=== PATIENT | female | born 1995 | race Caucasian/White ===

== ENCOUNTER 2022-10-27 10:06 | Emergency (ER) | payer OTHER, SELFPAY ==
[2022-10-27] VITALS (7 sets, daily range): BP systolic 118–147; BP diastolic 73–89; PULSE 57–89; RESP 11–17; TEMP 36.6–36.8; O2SAT 97–100; BMI 24.0
--- NOTE | 2022-10-27 10:06 | ECG_ITS ---
APPROVED REPORT Exam: Resting ECG HR:96 bpm ECG Measurements Heart Rate 96 AXES TN 159 P 65 QRSd 106 QRS 18 QT 337 T -4 QTc 390 Conclusion SINUS RHYTHM WITH MARKED SINUS ARRHYTHMIA LEFT ATRIAL ENLARGEMENT [-0.15mV P-WAVE IN V1/V2] INCOMPLETE RIGHT BUNDLE BRANCH BLOCK [90+ ms QRS DURATION, TERMINAL R IN V1/V2, 40+ ms S IN I/aVL/V4/V5/V6] ABNORMAL ECG UNCONFIRMED REPORT Electronically signed by : Musa Schultz MD 10/27/2022 19:45:53
--- NOTE | 2022-10-27 10:11 | HMH.EDGENADL ---
Discharge Plan Disposition Patient Disposition: Home, Self-Care Activity Restrictions/Add. Instructions Additional Instructions/Restrictions: Follow-up with primary care doctor as needed return to the emergency department as needed as well. I would recommend that you change away from an estrogen containing contraceptive to progesterone only or get off of them altogether this something you talk to your primary care doctor and [employer] doctor as your work-up today was most concerning for a pulmonary embolism but the work-up was negative. It is likely that you have pleurisy which can be idiopathic in nature meaning we do not know the exact cause please take ibuprofen 800 mg 3 times a day as needed with food return with any worsening symptoms. Clinical Impressions Clinical Impression: Pleuritic chest pain Discharge ED Provider: Shannen Sauceda General Adult HPI General Chief complaint: Chest Pain Stated complaint: chest pain Time Seen by Provider: 10/27/22 10:12 History of Present Illness HPI narrative: 27-year-old female presenting with anterior pleuritic chest pain. Began this morning is nonpositional in nature does not improve with sitting forward. She has not had any preceding viral illnesses no fevers chills cough cold like illness. She has no history of any lower extremity swelling no history of DVT or PTE or family history of coagulopathy. She is on oral contraceptive pills. She denies any exertional component to this at the moment. States that the only thing that makes it worse is a deep breath. She is extremely fit and works out regularly but has not done any excessive lifting out of the ordinary for what she normally does from an activity standpoint. No family history of sudden cardiac . Related Data Allergies Allergy/AdvReac Type Severity Reaction Status Date / Time amoxicillin Allergy Verified 05/19/22 10:25 [facility] Disclaimer: The information contained in this section may have been updated after the patient was seen, as this information can be updated by other users. Social History Smoking Status: Never smoker alcohol intake: never current occupational status: other Travel in the last 8 weeks: None ROS Obtained: Yes All systems reviewed & no additional complaints except as documented Physical Exam General General appearance: alert Chest Chest inspection: Present normal inspection and symmetric chest wall rise Respiratory Respiratory exam: Present normal lung sounds bilaterally; Absent respiratory distress, wheezes, stridor or accessory muscle use Cardiovascular Cardiovascular exam: Present normal rhythm and tachycardia Abdominal Exam Abdominal exam: Present soft; Absent distention, tenderness, guarding or rebound Neurological Exam Neurological exam: Present alert Medical Decision Making Bret Inquiry Pt receiving controlled substance: No Vital Signs: 10/27/22 10:09 10/27/22 10:28 10/27/22 10:30 Temperature 97.9 F Temperature Source Oral Pulse Rate 83 83 Pulse Rate [Left Radial] 89 Respiratory Rate 17 13 Blood Pressure 119/77 Blood Pressure [Right Arm] 139/85 Blood Pressure Mean 91 Blood Pressure Mean [Right Arm] 103 Blood Pressure Source [Right Arm] Automatic Cuff Blood Pressure Position [Right Arm] Sitting 02 Sat by Pulse Oximetry 97 99 Oxygen Delivery Method Room Air 10/27/22 10:30 10/27/22 10:45 10/27/22 11:30 Temperature Temperature Source Pulse Rate 77 78 67 Pulse Rate [Left Radial] Respiratory Rate 14 15 Blood Pressure 123/73 Blood Pressure [Right Arm] Blood Pressure Mean 93 Blood Pressure Mean [Right Arm] Blood Pressure Source [Right Arm] Blood Pressure Position [Right Arm] 02 Sat by Pulse Oximetry 100 100 100 Oxygen Delivery Method Room Air 10/27/22 12:00 Temperature Temperature Source Pulse Rate 66 Pulse Rate [Left Radial] Respiratory Rate Blood Pressure 118/75 Blood Pressure [Right Ar
--- NOTE | 2022-10-27 10:18 | PC.NURSE ---
Pt asked to defer pain medication IV dose at this time
[2022-10-27 10:22] LABS: Eosinophils # 0.1 K/mm3 (0.0-0.4); Hematocrit 39.9 % (37.0-47.0); Hemoglobin 12.7 g/dL (12.2-16.2); Lymphocytes # 1.6 K/mm3 (0.7-4.5); Lymphocytes % 36.9 % (10-50); Mean Corpuscular HGB Conc 31.7 g/dL (31.8-35.4); Mean Corpuscular Hemoglobin 26.6 pg (27.0-31.2); Mean Corpuscular Volume 83.8 fl (81-99); Mean Platelet Volume 7.2 fl (7.4-10.4); Monocytes # 0.3 K/mm3 (0.1-1.0); Monocytes % 7.2 % (1.7-9.3); Neutrophils # 2.3 K/mm3 (1.8-7.8); Neutrophils % 52.9 % (37.0-80.0); Platelet Count 363 K/mm3 (142-424); Red Blood Count 4.76 M/mm3 (4.20-5.40); White Blood Count 4.3 K/mm3 (4.8-10.8)
[2022-10-27 10:27] LABS: Alanine Aminotransferase 19 U/L (12-78); Albumin Level 4.4 g/dl (3.5-5.0); Albumin/Globulin Ratio 1.3 (1.1-1.8); Alkaline Phosphatase 56 U/L (38-126); Anion Gap 10.8 mEq/L (5-15); Aspartate Amino Transferase 30 U/L (14-36); Bilirubin,Total 0.3 mg/dl (0.2-1.3); Blood Urea Nitrogen 13 mg/dl (7-17); Calcium 8.6 mg/dl (8.4-10.2); Carbon Dioxide 25 mmol/L (22.0-30.0); Chloride 105 mmol/L (98-107); Creatinine Clearance Estimated 122 mL/min (50-200); Estimated Glomerular Filt Rate 101 ml/min (>60); GFR (African American) 122 ML/MIN (>60); Globulin 3.3 g/dL (1.3-3.2); Glucose 95 mg/dl (74-100); Lipase 131 U/L (23-300); Potassium 3.8 mmoL/L (3.5-5.1); Sodium 137 mmol/L (136-145); Total Protein,Serum 7.7 g/dl (6.3-8.2)
[2022-10-27 10:33] LABS: D-Dimer 0.69 ug/mL (0.0-0.5)
[2022-10-27 10:40] LABS: Troponin I < 0.01 ng/ml (0.00-0.034)
--- NOTE | 2022-10-27 10:43 | CT_ITS ---
FINAL REPORT TECHNIQUE: The patient was injected with IV contrast. Axial images were obtained through the chest in a PE protocol. 3-D reconstruction images were also performed. Individualized dose reduction techniques using automated exposure control or adjustment of the MA and/or KV according to patient's size were employed. CLINICAL HISTORY: pleuritic cp, on OCPs, elevated dimer FINDINGS: There is a moderate pectus deformity. The distance between the posterior sternum and thoracic vertebrae is 4.9 cm. Mediastinal vasculature is adequately opacified. No pulmonary artery filling defects are identified to suggest PE. There is no aortic dissection. There is no axillary adenopathy. There is no hilar or mediastinal adenopathy. The heart size is normal. There is no pericardial or pleural effusion. Limited images of the upper abdomen are unremarkable. No suspicious infiltrate or nodule is identified. IMPRESSION: No pulmonary embolus or dissection. Reviewed, Interpreted and Dictated by Yomi Rod MD Transcribed by Melinda Dixon Authenticated and [facility]
--- NOTE | 2022-10-27 10:53 | PC.NURSE ---
adama rounded on pt,call light 2 bs
[2022-10-27 10:56] LABS: HCG Qualitative, Serum Negative (Negative)
--- NOTE | 2022-10-27 10:59 | PC.NURSE ---
pt to CT via wheelchair at this time
--- NOTE | 2022-10-27 11:00 | PC.NURSE ---
pt to radiology
--- NOTE | 2022-10-27 11:11 | PC.NURSE ---
pt arrived to room
[2022-10-27 12:30] LABS: Urine Pregnancy, HCG Qual. Negative (Negative)
== END 2022-10-27 13:05 | disposition home or self-care (01) ==
PROVIDERS: Emergency Provider Student in an Organized Health Care Education/Training Program
DX: R07.81 Pleurodynia (principal); I45.19 Other right bundle-branch block; R00.0 Tachycardia, unspecified
CPT/HCPCS: 71275; 80053; 81025; 83690; 84484; 84703; 85025; 85378; 93005; 96360; 96374; 99285; Q9967

== ENCOUNTER → 2022-11-07 16:37 | Outpatient (CLI) | payer OTHER, SELFPAY ==
[2022-11-07 16:46] LABS: Basophils % 0.5 % (0.1-2.0); Eosinophils % 0.8 % (0.1-12.0); Hematocrit 39.2 % (37.0-47.0); Hemoglobin 12.8 g/dL (12.2-16.2); Lymphocytes # 1.4 K/mm3 (0.7-4.5); Lymphocytes % 30.4 % (10-50); Mean Corpuscular HGB Conc 32.7 g/dL (31.8-35.4); Mean Corpuscular Hemoglobin 27.4 pg (27.0-31.2); Mean Corpuscular Volume 83.8 fl (81-99); Mean Platelet Volume 7.3 fl (7.4-10.4); Monocytes # 0.4 K/mm3 (0.1-1.0); Monocytes % 8.4 % (1.7-9.3); Neutrophils # 2.8 K/mm3 (1.8-7.8); Neutrophils % 59.8 % (37.0-80.0); Platelet Count 305 K/mm3 (142-424); Red Blood Count 4.67 M/mm3 (4.20-5.40); Red Cell Distribution Width 13.9 % (11.5-17.5); White Blood Count 4.6 K/mm3 (4.8-10.8)
[2022-11-07 17:30] LABS: Alanine Aminotransferase 17 U/L (12-78); Albumin Level 4.2 g/dl (3.5-5.0); Albumin/Globulin Ratio 1.4 (1.1-1.8); Alkaline Phosphatase 73 U/L (38-126); Aspartate Amino Transferase 28 U/L (14-36); Bilirubin,Total 0.3 mg/dl (0.2-1.3); Blood Urea Nitrogen 13 mg/dl (7-17); Calcium 8.8 mg/dl (8.4-10.2); Carbon Dioxide 27 mmol/L (22.0-30.0); Chloride 103 mmol/L (98-107); Chol/HDL Ratio 1.9 (1-3.5); Cholesterol 143 mg/dl (140-200); Estimated Glomerular Filt Rate 121 ml/min (>60); GFR (African American) 146 ML/MIN (>60); Globulin 2.9 g/dL (1.3-3.2); Glucose 77 mg/dl (74-100); HDL Cholesterol 76 mg/dl (40-60); Sodium 132 mmol/L (136-145); Total Protein,Serum 7.1 g/dl (6.3-8.2); Triglycerides 66 mg/dl (30-150); VLDL Cholesterol 13 mg/dL (0-40)
[2022-11-07 17:41] LABS: Direct LDL Cholesterol 57.07 mg/dL (100-129)
[2022-11-07 17:45] LABS: Free T4 (Free Thyroxine) 1.08 ng/dl (0.78-2.19)
[2022-11-07 18:00] LABS: Thyroid Stimulating Hormone 2.08 uIU/mL (0.465-4.68)
[2022-11-07 18:19] LABS: Vitamin B12 316 pg/mL (239-931)
[2022-11-16 19:25] LABS: 1,25 Dihydroxy Vitamin D 62 pg/mL (.); 1,25-Dihydroxy, Vitamin D-2 <10 pg/mL (.); 1,25-Dihydroxy, Vitamin D-3 60 pg/mL (.)
== END ==
PROVIDERS: PCP Student in an Organized Health Care Education/Training Program; Visit Provider Student in an Organized Health Care Education/Training Program
DX: R07.81 Pleurodynia (principal); R68.89 Other general symptoms and signs; Z79.899 Other long term (current) drug therapy
CPT/HCPCS: 80053; 80061; 82607; 82652; 84439; 84443; 85025

== ENCOUNTER 2023-08-19 12:11 | Outpatient (CLI) | payer OTHER, SELFPAY ==
[2023-08-19 13:18] LABS: HCG,Quantitative 3696 mIU/ml (0-5.42)
== END 2023-08-19 23:59 ==
LOC: LAB 12:12
PROVIDERS: PCP Student in an Organized Health Care Education/Training Program; Visit Provider Obstetrics & Gynecology
DX: Z32.00 Encounter for pregnancy test, result unknown (principal)
CPT/HCPCS: 36415; 84144; 84702

== ENCOUNTER 2023-09-09 16:44 | Outpatient (CLI) | payer OTHER, SELFPAY ==
[2023-09-11 05:08] LABS: Neisseria gonorrhoeae, NAA Negative (Negative)
== END 2023-09-09 23:59 ==
LOC: LAB.DROPOF 16:45
PROVIDERS: PCP Obstetrics & Gynecology; Visit Provider Obstetrics & Gynecology
DX: O26.891 Other specified pregnancy related conditions, first trimester (principal); Z3A.08 8 weeks gestation of pregnancy
CPT/HCPCS: 87491; 87591

== ENCOUNTER 2023-09-10 09:32 | Outpatient (CLI) | payer SELFPAY | END 2023-09-10 23:59 | PROVIDERS: PCP Obstetrics & Gynecology; Visit Provider Obstetrics & Gynecology | DX: O26.891 Other specified pregnancy related conditions, first trimester (principal); Z3A.08 8 weeks gestation of pregnancy | CPT/HCPCS: 87086 ==

== ENCOUNTER 2023-09-16 15:30 | Outpatient (CLI) | payer OTHER, SELFPAY ==
[2023-09-16 16:04] LABS: Basophils % 0.3 % (0.1-2.0); Eosinophils # 0.1 K/mm3 (0.0-0.4); Eosinophils % 1.7 % (0.1-12.0); Hematocrit 37.6 % (37.0-47.0); Hemoglobin 12.3 g/dL (12.2-16.2); Lymphocytes % 27.3 % (10-50); Mean Corpuscular HGB Conc 32.9 g/dL (31.8-35.4); Mean Corpuscular Volume 88.4 fl (81-99); Mean Platelet Volume 7.3 fl (7.4-10.4); Monocytes # 0.4 K/mm3 (0.1-1.0); Monocytes % 6.1 % (1.7-9.3); Neutrophils # 4.6 K/mm3 (1.8-7.8); Neutrophils % 64.6 % (37.0-80.0); Platelet Count 298 K/mm3 (142-424); Red Blood Count 4.25 M/mm3 (4.20-5.40); Red Cell Distribution Width 13.8 % (11.5-17.5); White Blood Count 7.2 K/mm3 (4.8-10.8)
[2023-09-17 11:36] LABS: Rapid Plasma Reagin Ab Titer Non Reactive titer (NonRea<1:1)
[2023-09-20 09:59] LABS: HIV Screen 4th Generation wRfx Non Reactive; Hepatitis B Surface Antigen Negative
[2023-09-20 10:00] LABS: Hepatitis C Antibody Non Reactive; Rubella Antibodies, IgG 1.04
== END 2023-09-16 23:59 ==
LOC: LAB 15:31
PROVIDERS: PCP Student in an Organized Health Care Education/Training Program; Visit Provider Obstetrics & Gynecology
DX: O26.891 Other specified pregnancy related conditions, first trimester (principal); Z3A.09 9 weeks gestation of pregnancy
CPT/HCPCS: 36415; 85025; 86593; 86703; 86762; 86850; 87340; 87380; G0432

== ENCOUNTER 2023-09-22 11:58 | Emergency (ER) | payer OTHER, SELFPAY ==
[2023-09-22 12:10] VITALS: BP 129/86; PULSE 119; RESP 21; TEMP 37.3; O2SAT 100; BMI 27.1
--- NOTE | 2023-09-22 12:20 | ED_ITS ---
Discharge Plan Disposition Patient Disposition: Home, Self-Care Condition: Good Prescriptions Prescriptions: No Action Classic 28 mg iron- 800 mcg tablet 1 tab PO DAILY Referrals Follow up/Referrals: Laura Farrar PA [Primary Care Provider] - See instructions Activity Restrictions/Add. Instructions Additional Instructions/Restrictions: *Monitor Temp, Over the counter Motrin or Tylenol as directed/as needed Tylenol every 4 hours and Motrin every 6 hours (as long as your family doctor has told you that you can take it) for fever or pain. and straight to ER if unable to lower temp less than 101.0 after medication given *Warm salt water gargles may help to soothe the throat *Throat Lozenges? *Warm fluids like tea with honey may help to soothe the throat? *Sleep elevated *Humidifier/Vaporizer Follow up IMMEDIATELY for new or worsening symptoms or no Noticeable improvement over the next 48-72 hours. 911 for difficulty breathing or swallowin g You were tested for today for Upper Respiratory Panel with COVID19 your test result should be back in the next 24hours, you may check your results on the [facility] My Health Portal if your COVID or Influenza is positive you must Quarantine for 5 days Clinical Impressions Clinical Impression: Viral syndrome Instructions Patient Instructions: DI for Viral Syndrome Discharge ED Provider: Tiffany Hodges [facility] [place] General Stated complaint: Fever, bodyaches Mode of Arrival: Ambulatory Source of Information: Patient Limitations: No Limitations Time Seen by Provider: 09/22/23 12:20 Description of Symptoms (Recalled from Triage Doc. 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, chills and felt like she had a fever States that after getting out she continued to have the same symptoms so she came in get checked Related Data Home Medications Medication Instructions Recorded Confirmed vits no.126-ferrous fum 1 tab PO DAILY 09/09/23 09/22/23 28 mg iron-folic acid 800 mcg tablet (Classic ) Allergies Allergy/AdvReac Type Severity Reaction Status Date / Time amoxicillin Allergy Verified 09/09/23 15:42 Worker's Comp Is this a Worker's Comp case?: No [facility] Disclaimer: The information contained in this section may have been updated after the patient was seen, as this information can be updated by other users. 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 Surgical History History of placement of ear tubes Family History Other Anemia Hyperlipidemia Hypertension Social History Smoking Status: Never smoker alcohol intake: never current occupational status: employed Travel in the last 8 weeks: None household members: significant other housing: house lives independently: No marital status: single service: No alf: No current occupational exposures/hazards: No ROS Obtained: Yes All systems reviewed & no additional complaints except as documented and Yes Systems reviewed as appropriate & no additional complaints except as documented Constitutional Constitutional: Reports body ache, Reports chills and Reports fever(s) ENT Ears, Nose, Mouth, and Throat: Reports system reviewed and no additional complaints, except as documented and Reports as per HPI Cardiovascular Cardiovascular: Reports system reviewed and no additional complaints, except as documented and Reports as per HPI Respiratory Respiratory: Reports system reviewed and no additional complaints, except as documented and Reports as per HPI Gastrointestinal Gastrointestingal: Reports system reviewed and no additional complaints, except as documented and as per HPI; Denies abdominal pain, nausea or vomiting Physical Exam General General appearance: alert and in no apparent distress ENT ENT exam: Present mucous membranes moist Respiratory Respiratory exam: Present normal lung sounds bilaterally; Absent respiratory distress or wheezes Cardiovascular Cardiovascular exam: Present regular rate, normal rhythm and tachycardia Neurological Exam Neurological exam: Present alert, oriented X3 and normal gait Medical Decision Making Bret Inquiry Pt receiving controlled substance: No Bret was queried for this patient: No Vital Signs: 09/22/23 12:10 Temperature 99.2 F Temperature Source Oral Pulse Rate [Left Brachial] 119 H Respiratory Rate 21 Blood Pressure [Left Arm] 129/86 Blood Pressure Mean [Left Arm] 100 Blood Pressure Source [Left Arm] Automatic Cuff Blood Pressure Position [Left Arm] Sitting 02 Sat by Pulse Oximetry 100 Oxygen Delivery Method Room Air Lab Data Lab results reviewed: Yes I reviewed the patient's lab results.
[2023-09-22 12:32] VITALS: BP 129/86; PULSE 119; RESP 21; TEMP 37.3; O2SAT 100
[2023-09-22 12:39] LABS: UTC Influenza A Antigen Negative (Negative); UTC Influenza B Antigen Negative (Negative)
[2023-09-22 12:50] LABS: Adenovirus,PCR Not Detected (NotDetected); Coronavirus 229E Not Detected (NotDetected); Coronavirus NL63 Not Detected (NotDetected); Coronavirus OC43 Not Detected (NotDetected); Coronovirus HKU1,PCR Not Detected (NotDetected); Human Metapneumovirus Not Detected (NotDetected); Influenza A, PCR Not Detected (NotDetected); Influenza AH1, 2009 Not Detected (NotDetected); Influenza AH1, PCR Not Detected (NotDetected); Influenza AH3,PCR Not Detected (NotDetected); Influenza B, PCR Not Detected (NotDetected); Parainfluenza 1, PCR Not Detected (NotDetected); Parainfluenza 2, PCR Not Detected (NotDetected); Parainfluenza 3, PCR Not Detected (NotDetected); Parainfluenza 4, PCR Not Detected (NotDetected); Respiratory Syncytial Virus Not Detected (NotDetected); Rhinovirus/Enterovirus Not Detected (NotDetected)
[2023-09-22 15:12] LABS: Coronavirus 19, PCR Detected (NotDetected)
== END 2023-09-22 12:42 | disposition home or self-care (01) ==
PROVIDERS: Emergency Provider Nurse Practitioner; PCP Student in an Organized Health Care Education/Training Program
DX: O98.519 Other viral diseases complicating pregnancy, unspecified trimester (principal); U07.1 COVID-19; R50.9 Fever, unspecified; Z3A.00 Weeks of gestation of pregnancy not specified; M79.18 Myalgia, other site
CPT/HCPCS: 87632; 87635; 87804; 99204; 99212; G0463

== ENCOUNTER 2023-12-02 12:59 | Outpatient (CLI) | payer OTHER, SELFPAY ==
--- NOTE | 2023-12-02 13:00 | US_ITS ---
PROCEDURE: US OB /MATERNAL DETAIL CLINICAL INDICATION: 20 week anatomy scan COMPARISON: No exams were available for comparison FINDINGS: Transabdominal sonographic images of the pelvis were obtained. From her established due date she is 20 weeks 2 days. Single viable intrauterine gestation. Breech position. Placenta: Anteriorplacenta grade 1. Low lying and 1.4 cm from the internal cervical os. There is an average amount of fluid. The cervix appears satisfactory. Closed and measuring 3.8 cm in length. Complete survey performed and was unremarkable on the submitted images as in PACS. No discrete anomalies identified on survey imaging by technologist. Active fetus. Three-vessel cord with satisfactory umbilical cord insertion. 4- chamber heart noted. Situs, aortic arch, LVOT, RVOT, three-vessel view appear normal. Survey of brain & ventricles Unremarkable. Cerebellum, thalamus, choroid plexus, cisterna magna appear normal. Face and neck survey unremarkable. Profile, nasion, lips and nose appeared normal. Diaphragm and chest views unremarkable. Abdomen: Both kidneys noted. There is mild right renal pelvis dilation of 4.2 mm. Stomach and bladder noted and satisfactory. Spine: Survey of the spine satisfactory with no anomalies identified nor imaged. Cervical, thoracic, lower spine appear normal. Both arms and legs noted. Amniotic Fluid: Adequate. Measurements: Average ultrasound age 20weeks 1day. Estimated due date by ultrasound age 0904/19/2024. Estimated weight 337g BPD = 19weeks 4days HC = 20weeks 2days AC = 20weeks 3days FL = 20weeks 0 days Growth Percentile= 39 Heart Rate = 144bpm Cerebellum = 19weeks 5days Humerus = 21weeks 1day HC/AC is 1.16 FL/BPD is 0.72 FL/AC is 0.21 IMPRESSION: 1. Viable fetus in the breech presentation with an anterior placenta grade 1. 2. The placenta is low lying currently 1.4 cm from the internal cervical os. 3. Fluid is within normal limits. 4. Anatomical scan appears normal. There is mild right renal pelvis dilation of 4.2 mm. 5. Would suggest repeat ultrasound at 28 weeks to look at the low-lying placenta and renal pelvis dilation. 6. biometry is consistent with a dates. Dictated by: Uriel Harper MD 12/02/2023 15:04 Uriel aHrper MD in [place] 12/02/2023 15:04
== END 2023-12-02 23:59 | disposition home or self-care (01) ==
LOC: RAD 13:00
PROVIDERS: PCP Student in an Organized Health Care Education/Training Program; Visit Provider Obstetrics & Gynecology
DX: O26.892 Other specified pregnancy related conditions, second trimester (principal); Z36.89 Encounter for other specified antenatal screening; Z3A.20 20 weeks gestation of pregnancy
CPT/HCPCS: 76811

== ENCOUNTER 2024-01-21 14:05 | Outpatient (CLI) | payer OTHER, SELFPAY ==
--- NOTE | 2024-01-21 14:14 | US_ITS ---
PROCEDURE: US OB FOLLOW UP CLINICAL INDICATION: for placental location and re-evaluate the kidneys COMPARISON: US US OB /MATERNAL DETAIL from 12/02/2023 FINDINGS: Transabdominal sonographic images of the pelvis were obtained. The following parameters are obtained: From her established due date she is 27weeks 3days Viable fetus in the cephalic presentation with an anterior placenta grade 1. The placenta appears well away from the cervix. The cervix measures 4.1 cm. heart rate: 150bpm bpm. Estimated weight: 1124 grams, 2 lb 8 oz. BPD: 29weeks 4days, 94 percentile HC: 29weeks 0 days, 71 percentile AC: 27weeks 6days, 52 percentile FL: 27weeks 2days, 27 percentile HC/AC: 1.14 FL/BPD: 0.69 FL/AC: 0.22 Growth percentile: 51 percentile Amniotic fluid index: Normal, MVP 6.46 cm. No obvious anomalies evident. profile seen, nasion, stomach, bladder, kidneys, three-vessel cord, four chamber heart appear normal. There is minimal right renal pelvis dilation measuring 4.4 mm. IMPRESSION: 1. Viable fetus in the cephalic presentation with an anterior placenta grade 1. The placenta is no longer close to the cervix. 2. The fluid is within normal limits with an MVP is 6.46 cm. 3. There continues to be mild right renal pelvis dilation measuring 4.4 mm. 4. The rest of the limited anatomical scan appears normal. 5. There has been good interval growth with the fetus currently 51st percentile. Dictated by: Uriel Harper MD 01/21/2024 17:33 Uriel Harper MD in [place] 01/21/2024 17:33
== END 2024-01-21 23:59 | disposition home or self-care (01) ==
LOC: RAD 14:06
PROVIDERS: PCP Student in an Organized Health Care Education/Training Program; Visit Provider Obstetrics & Gynecology
DX: Z36.89 Encounter for other specified antenatal screening (principal); Z36.2 Encounter for other antenatal screening follow-up
CPT/HCPCS: 76816

== ENCOUNTER 2024-01-27 15:12 | Outpatient (CLI) | payer OTHER, SELFPAY ==
[2024-01-27 15:27] LABS: Basophils % 0.5 % (0.1-2.0); Eosinophils # 0.1 K/mm3 (0.0-0.4); Eosinophils % 1.5 % (0.1-12.0); Hematocrit 35.9 % (37.0-47.0); Lymphocytes # 1.8 K/mm3 (0.7-4.5); Lymphocytes % 20.6 % (10-50); Mean Corpuscular HGB Conc 33.6 g/dL (31.8-35.4); Mean Corpuscular Hemoglobin 30.2 pg (27.0-31.2); Mean Corpuscular Volume 89.8 fl (81-99); Mean Platelet Volume 7.9 fl (7.4-10.4); Monocytes # 0.4 K/mm3 (0.1-1.0); Neutrophils # 6.2 K/mm3 (1.8-7.8); Neutrophils % 72.5 % (37.0-80.0); Platelet Count 278 K/mm3 (142-424); Red Blood Count 3.99 M/mm3 (4.20-5.40); Red Cell Distribution Width 14.2 % (11.5-17.5); White Blood Count 8.6 K/mm3 (4.8-10.8)
[2024-01-27 15:54] LABS: Glucose,Fasting 74 mg/dl (74-100)
[2024-01-27 16:50] LABS: Glucose 1 Hour 118 mg/dL (74-100)
== END 2024-01-27 23:59 | disposition home or self-care (01) ==
PROVIDERS: PCP Student in an Organized Health Care Education/Training Program; Visit Provider Obstetrics & Gynecology
DX: Z34.90 Encounter for supervision of normal pregnancy, unspecified, unspecified trimester (principal)
CPT/HCPCS: 36415; 82951; 85025

== ENCOUNTER 2024-02-18 13:42 | Outpatient (CLI) | payer OTHER, SELFPAY ==
--- NOTE | 2024-02-18 13:42 | US_ITS ---
PROCEDURE: US OB BIOPHYSICAL PROFILE CLINICAL INDICATION: follow up to dilation of renal pelvis COMPARISON: US US OB /MATERNAL DETAIL from 12/02/2023 US US OB FOLLOW UP from 01/21/2024 FINDINGS: Transabdominal sonographic images of the uterus were obtained. From her established due date she is 31weeks 3days. The following parameters are obtained: Viable Fetus in the cephalic presentation with an anterior placenta grade 2. Average ultrasound age is 32weeks 4days Estimated weight 1,837g, 4 lb 1 oz Cervix measures 3.08 cm. Measurements: heart Rate = 133bpm BPD = 33weeks 6days, 95 percentile HC = 34weeks 0 days, 80 percentile AC = 31weeks 6days, 59 percent FL = 30weeks 4days, 16 percentile HC/AC is 1.1 FL/BPD is 0.7 FL/AC is 0.21 50 percentile Amniotic fluid index: 17.34cm, MVP 6.08 cm. Qualitative AFV:2 Breathing movements: 2 Gross Body Movements: 2 Tone: 2 Biophysical profile score: 8 No obvious anomalies evident.Kidneys, profile, bladder, stomach, four-chamber heart, three-vessel cord appear normal. Today there is minimal renal pelvis dilation measuring 3.5 mm. IMPRESSION: 1. Viable fetus in the cephalic presentation with an anterior placenta grade 2. 2. The fluid is within normal limits with an amniotic fluid index of 17.34 cm, MVP 6.08 cm. 3. Biophysical profile is 8/8 with good breathing movement and movement seen. 4. There has been good interval growth with the fetus currently 50th percentile. 5. Limited anatomical scan appears normal. 6. The dilated renal pelvis seen on previous ultrasounds is minimal at 3.5 mm. Dictated by: Uriel Harper MD 02/19/2024 08:54 Uriel Harper MD in [place] 02/19/2024 08:54
== END 2024-02-18 23:59 | disposition home or self-care (01) ==
LOC: RAD 13:42
PROVIDERS: PCP Student in an Organized Health Care Education/Training Program; Visit Provider Obstetrics & Gynecology
DX: N28.89 Other specified disorders of kidney and ureter (principal); Z3A.31 31 weeks gestation of pregnancy
CPT/HCPCS: 76816; 76819

== ENCOUNTER 2024-03-13 16:04 | Outpatient (CLI) | payer OTHER, SELFPAY ==
[2024-03-13 16:13] VITALS: BMI 29.8
[2024-03-13 16:20] LABS: Microscopic, Urine URINE MICROSCOPIC (MICROSCOPIC)
[2024-03-13 16:21] LABS: Appearance,Urine CLEAR (Clear); Bilirubin,Urine Negative (Negative); Blood, Urine 2+ (Negative); Color,Urine YELLOW (Yellow); Glucose,Urine (UA) Negative (Negative); Ketones,Urine Negative (Negative); Leukocyte Esterase,Urine Negative (Negative); Nitrate,Urine Negative (Negative); Protein,Urine Negative (Negative); Specific Gravity, Urine 1.015 (1.005-1.030); Urobilinogen,Urine 0.2 EU/dl (0.2)
[2024-03-13 16:22] VITALS: BP 137/85; PULSE 73; RESP 17; TEMP 36.6; O2SAT 98; BMI 29.8
[2024-03-13 16:37] LABS: Amphetamine/Metha Screen,Urine Negative ng/ml (<1000)
[2024-03-13 16:38] LABS: Barbiturates Screen,Urine Negative ng/ml (<200)
[2024-03-13 16:39] LABS: Benzodiazepines Screen,Urine Negative ng/ml (<200); Cannabinoid Screen,Urine Negative ng/ml (<50)
[2024-03-13 16:40] LABS: Cocaine Screen,Urine Negative ng/ml (<300); Methadone Screen,Urine Negative ng/ml (<300)
[2024-03-13 16:41] LABS: Opiate Screen,Urine Negative ng/ml (<300)
[2024-03-13 16:42] LABS: Phencyclidine Screen,Urine Negative ng/ml (<25)
[2024-03-13 16:49] LABS: Squamous Epithelial Cell,Urine Occasional #/hpf (0-5); WBC,Urine Occasional #/hpf (0-3)
[2024-03-13] MEDS: LACTATED RINGERS 1000ML 1,000 ML 500 ML IV (17:00)
== END 2024-03-13 18:23 | disposition home or self-care (01) ==
LOC: OBOUT 16:06 → OB 16:07
PROVIDERS: PCP Student in an Organized Health Care Education/Training Program; Visit Provider Obstetrics & Gynecology
DX: O46.93 Antepartum hemorrhage, unspecified, third trimester (principal); Z3A.34 34 weeks gestation of pregnancy
CPT/HCPCS: 80307; 81001; G0463; J7120

== ENCOUNTER 2024-03-23 17:16 | Outpatient (CLI) | payer OTHER, SELFPAY | END 2024-03-23 23:59 | disposition home or self-care (01) | LOC: LAB.DROPOF 17:17 | PROVIDERS: PCP Obstetrics & Gynecology; Visit Provider Obstetrics & Gynecology | DX: Z34.90 Encounter for supervision of normal pregnancy, unspecified, unspecified trimester (principal) | CPT/HCPCS: 86403 ==

== ENCOUNTER 2024-04-13 05:07 | Inpatient (IN) | payer OTHER, SELFPAY ==
[2024-04-13 05:22] VITALS: BP 134/98; PULSE 78; RESP 20; TEMP -6.6; TEMP 20; O2SAT 100; BMI 29.8
[2024-04-13 05:50] LABS: Basophils % 0.4 % (0.1-2.0); Eosinophils # 0.2 K/mm3 (0.0-0.4); Eosinophils % 2.6 % (0.1-12.0); Hematocrit 36.8 % (37.0-47.0); Hemoglobin 12.2 g/dL (12.2-16.2); Lymphocytes # 2.1 K/mm3 (0.7-4.5); Lymphocytes % 26.4 % (10-50); Mean Corpuscular HGB Conc 33.1 g/dL (31.8-35.4); Mean Corpuscular Hemoglobin 30.2 pg (27.0-31.2); Mean Corpuscular Volume 91.2 fl (81-99); Mean Platelet Volume 7.5 fl (7.4-10.4); Monocytes # 0.5 K/mm3 (0.1-1.0); Monocytes % 5.8 % (1.7-9.3); Neutrophils # 5.1 K/mm3 (1.8-7.8); Neutrophils % 64.9 % (37.0-80.0); Platelet Count 235 K/mm3 (142-424); Red Blood Count 4.04 M/mm3 (4.20-5.40); Red Cell Distribution Width 14.1 % (11.5-17.5); White Blood Count 7.9 K/mm3 (4.8-10.8)
[2024-04-13] MEDS: DEXTROSE 5%-LACTATED RINGERS 1,000 ML 125 ML IV (06:37)
[2024-04-13] MEDS: OXYTOCIN/RINGERS LACTATE 30 UNITS/500 ML BAG IV (06:37)
--- NOTE | 2024-04-13 08:50 | P.HP_ITS ---
OB - H&P: HPI Antepartum History of Present Illness Chief complaint: Elective induction of labor History of present illness: Chitra is a 29 yo at 39w2d who presents to [facility] L&D for elective induction of labor. She has had good care. Baby is active. She has been having irregular contractions and pelvic pressure. GBS negative. History of Present Criteria for establishing EDC:: LMP confirmed by 1st trimester US care: good care Ultrasounds: normal mid trimester US Obstetrical complications: none Medical complications: none Labs Blood type: A (+) positive Rubella: immune RPR/VDRL: nonreactive GBS status: negative HBsAG: negative PFSH PFS Disclaimer: The information contained in this section may have been updated after the patient was seen, as this information can be updated by other users. Medical History (Updated 04/13/24 @ 09:28 by Claudia Molina DO) 39 weeks gestation of Encounter for elective induction of labor Dilation of renal pelvis of fetus Screening for genetic disease carrier status Endometriosis Dyspareunia Dysmenorrhea Menorrhagia VSD (ventricular septal defect) Surgical History History of placement of ear tubes Family History Other Anemia Hyperlipidemia Hypertension Social History Smoking Status: Never smoker alcohol intake: never current occupational status: employed Travel in the last 8 weeks: None household members: significant other housing: house lives independently: No marital status: single service: No long-term: No current occupational exposures/hazards: No Review of Systems Review of Systems Review of systems:: pertinent systems reviewed and negative unless documented be low Meds Home Medications and Allergies Home Medications ?Medication ?Instructions ?Recorded ?Confirmed ?Type vits no.126-ferrous fum 1 tab PO DAILY 09/09/23 04/13/24 History 28 mg iron-folic acid 800 mcg tablet (Classic ) New Prescriptions to Start Prescriptions: Allergies Allergy/AdvReac Type Severity Reaction Status Date / Time amoxicillin Allergy Verified 04/12/24 16:06 OB - H&P: Exam Physical Exam Vital signs: Temp Pulse Resp BP Pulse Ox O2 Del Method 20 F L 78 20 134/98 H 100 Room Air 04/13/24 05:22 04/13/24 05:22 04/13/24 05:22 04/13/24 05:22 04/13/24 05:22 04/13/24 05:22 Constitutional no acute distress and cooperative Routine HEENT Exam Head: Present normocephalic and atraumatic Eye: Absent conjunctivae pink ENT: Present mucous membranes moist Routine Neck Exam Present full ROM Routine Respiratory Exam Present CTA bilaterally and normal respiratory effort Routine Cardiovascular Exam Present RRR Routine Abdominal Exam Present soft (Gravid); Absent tenderness Routine Rectal Exam Patient deferred: visual exam Routine Exam External: Present normal urethra appearance; Absent erythema, tenderness, lesions or lacerations Routine Extremities Exam Present full ROM; Absent edema or calf tenderness Routine Psychiatric Exam Present normal affect and cooperative Detailed Labor and Delivery Exam Dilation (cm): 4 Effacement (%): 75 Cervix position: anterior station: -2 Consistency: soft Membranes: artificially ruptured Amniotic fluid: clear Baseline heart rate: 130 monitor accelerations: Present monitor decelerations: None manager terminal variability: Moderate (11-25) Contraction frequency (min): 3 Tachysystole: No OB - Results Labs Labs: Short CBC 04/13/24 Range/Units 05:38 WBC 7.9 (4.8-10.8) K/mm3 Hgb 12.2 (12.2-16.2) g/dL Hct 36.8 L (37.0-47.0) % Plt Count 235 (142-424) K/mm3 OB - A/P Antepartum (1) Encounter for elective induction of labor: Status: Acute (2) 39 weeks gestation of : Status: Acute Additional Plan Planning to breastfeed?: Yes Additional Information:: Admit to [facility] L&D for elective induction of labor GBS negative Induction with Pitocin protocol Close monitoring Anticipate vaginal delivery
[2024-04-13] MEDS: LACTATED RINGERS 1000ML 1,000 ML 999 ML IV (09:00)
[2024-04-13 09:27] LABS: Benzodiazepines Screen,Urine Negative ng/ml (<200)
[2024-04-13 09:28] LABS: Amphetamine/Metha Screen,Urine Negative ng/ml (<1000)
[2024-04-13 09:29] LABS: Barbiturates Screen,Urine Negative ng/ml (<200)
[2024-04-13 09:30] LABS: Cannabinoid Screen,Urine Negative ng/ml (<50); Cocaine Screen,Urine Negative ng/ml (<300)
[2024-04-13 09:31] LABS: Methadone Screen,Urine Negative ng/ml (<300); Opiate Screen,Urine Negative ng/ml (<300)
[2024-04-13 09:32] LABS: Phencyclidine Screen,Urine Negative ng/ml (<25)
[2024-04-13 09:37] LABS: Appearance,Urine CLOUDY (Clear); Bilirubin,Urine Negative (Negative); Blood, Urine 3+ (Negative); Color,Urine YELLOW (Yellow); Glucose,Urine (UA) Negative (Negative); Ketones,Urine Negative (Negative); Leukocyte Esterase,Urine 2+ (Negative); Microscopic, Urine URINE MICROSCOPIC (MICROSCOPIC); Nitrate,Urine Negative (Negative); PH,Urine 6.5 (5.0-8.5); Protein,Urine Negative (Negative); Urobilinogen,Urine 0.2 EU/dl (0.2)
[2024-04-13 09:54] LABS: Bacteria,Urine 1+ /lpf; Calcium Oxalate Crystals,Urine 1+ /lpf
--- NOTE | 2024-04-13 10:13 | P.PNANES_ITS ---
[facility] Disclaimer: The information contained in this section may have been updated after the patient was seen, as this information can be updated by other users. Medical History 39 weeks gestation of Encounter for elective induction of labor Dilation of renal pelvis of fetus Screening for genetic disease carrier status Endometriosis Dyspareunia Dysmenorrhea Menorrhagia VSD (ventricular septal defect) Surgical History History of placement of ear tubes Family History Other Anemia Hyperlipidemia Hypertension Social History Smoking Status: Never smoker alcohol intake: never substance use type: denies use current occupational status: employed Travel in the last 8 weeks: None household members: significant other housing: house lives independently: No marital status: single service: No long term: No current occupational exposures/hazards: No [facility] Anesthesia Checklist Patient Identification Patient Identification: Arm Band and Verbal (Name & ) Structural Data Admitted From: Inpatient Planned Operative Procedure/s: Labor epidural Consent for Planned Operative Procedure(s) Verified: Yes Verified Documents: History and Physical NPO Status Verified Time NPO: 00:00 Chart Verification Results Verified: CBC Additional verifications Anesthesia Reactions: No Airway Assessment Mallampati Score:: Class II C-Spine Mobility Assessed: Yes TMJ Mobility Assessed: Yes Dentition: Good Dentition Neurological Assessment Level of Consciousness: Awake Hx Seizures: No Numbness or tingling in extremities: No Anesthesia Plan Anesthesia Risk discussed: Yes Anesthesia Plan: Verified ASA Class: II Anesthesia Type: Epidural
[2024-04-13] MEDS: ONDANSETRON 4MG/2ML VIAL 4 MG IV (10:58)
[2024-04-13] MEDS: OXYTOCIN/RINGERS LACTATE 30 UNITS/500 ML BAG 40 UNITS IV (15:35)
--- NOTE | 2024-04-13 16:10 | EXP.DN ---
Delivery Note Delivery Date:: 04/13/24 Delivery Time:: 15:35 Anesthesia Type: Epidural Was labor medically induced?: No Induction method: per pitocin protocol Gestational age (weeks): 39 delivered prior to 39 weeks?: No Infant Gender: Male at 1 minute: 8 at 5 minutes: 9 Delivery Procedure:: Mom complete with epidural. Pushed for approximately 40 minutes. Head delivered spontaneously over intact perineum in SHALONDA position. Nuchal cord x 2 easily reduced. Anterior shoulder delivered with gentle downward pressure. Posterior shoulder and remainder of body delivered spontaneously. Baby placed on maternal abdomen, mouth and nares bulb suctioned, warmed/dried and stimulated. Delayed cord clamping was performed for 6 minutes per parents' request. Cord was clamped and cut by father of baby. Cord blood was obtained. Placenta delivered spontaneously and intact. Bilateral labial abrasions were hemostatic. Mom and baby were skin to skin and doing well after delivery. Live male baby (baby's name is Rick Vergara) APGARs 8 (1 min), 9 (5 min) EBL 200 mL Placental Delivery Description: Spontaneous
[2024-04-13] MEDS: WITCH HAZEL 40 PADS/BOX 1 EACH TP (18:36)
[2024-04-13] MEDS: BENZOCAINE-MENTHOL SPRAY 56GM CAN TP (18:36)
[2024-04-14] MEDS: ACETAMINOPHEN 500MG TAB 1000 MG PO ×3 (00:32→20:12)
[2024-04-14] MEDS: IBUPROFEN 400 MG TABLET 800 MG PO ×3 (00:33→20:11)
[2024-04-14] MEDS: LANOLIN CREAM 40GM TP (00:33)
[2024-04-14] MEDS: SENNA 8.6MG TABLET 8.6 MG PO (00:33)
[2024-04-14 07:22] LABS: Basophils % 0.3 % (0.1-2.0); Eosinophils # 0.1 K/mm3 (0.0-0.4); Hematocrit 32.7 % (37.0-47.0); Hemoglobin 10.8 g/dL (12.2-16.2); Lymphocytes # 1.7 K/mm3 (0.7-4.5); Lymphocytes % 16.7 % (10-50); Mean Corpuscular Hemoglobin 30.2 pg (27.0-31.2); Mean Corpuscular Volume 91.6 fl (81-99); Mean Platelet Volume 8.2 fl (7.4-10.4); Monocytes # 0.5 K/mm3 (0.1-1.0); Neutrophils # 7.9 K/mm3 (1.8-7.8); Neutrophils % 77.1 % (37.0-80.0); Platelet Count 201 K/mm3 (142-424); Red Blood Count 3.56 M/mm3 (4.20-5.40); Red Cell Distribution Width 14.2 % (11.5-17.5); White Blood Count 10.2 K/mm3 (4.8-10.8)
--- NOTE | 2024-04-14 08:45 | P.PN_ITS ---
Subjective *Date: 04/14/24 *Time: 10:59 Interval history: PPD # 1 s/p Feeling well. Pain controlled. Breast feeding. Lochia is appropriate. Voiding without difficulty and passing flatus. Tolerating regular diet. Denies fever/chills, chest pain and shortness of breath. No headaches, vision changes, lightheadedness/dizziness. No lower extremity swelling. Ambulating well ad mima. Medical Exam Vital signs and Labs for Last 24 Hours: Laboratory Results - last 24 hr 04/13/24 05:38: Blood Type A Positive, Antibody Screen Negative 04/13/24 05:43: Urine Color Yellow, Urine Appearance Cloudy, Urine pH 6.5, Ur Specific [place] 1.020, Urine Protein Negative, Urine Glucose (UA) Negative, Urine Ketones Negative, Urine Blood 3+ A, Urine Nitrate Negative, Urine Bilirubin Negative, Urine Urobilinogen 0.2, Ur Leukocyte Esterase 2+ A, Urine RBC 5-10, Urine WBC 10-20, Ur Squamous Epith Cells 5-10, Calcium Oxalate Crystal 1+, Urine Bacteria 1+, Urine Opiates Screen Negative, Urine Methadone Screen Negative, Ur Barbituates Screen Negative, Ur Phencyclidine Scrn Negative, Ur Amphetamines Screen Negative, U Benzodiazepines Scrn Negative, Urine Cocaine Screen Negative, U Marijuana (THC) Screen Negative 04/14/24 06:44: WBC 10.2 D, RBC 3.56 L, Hgb 10.8 L, Hct 32.7 L, MCV 91.6, MCH 30.2, MCHC 33.0, RDW 14.2, Plt Count 201, MPV 8.2, Neut % (Auto) 77.1, Lymph % (Auto) 16.7, [place] % (Auto) 5.0, Eos % (Auto) 1.0, Baso % (Auto) 0.3, Neut # (Auto) 7.9 H, Lymph # (Auto) 1.7, [place] # (Auto) 0.5, Eos # (Auto) 0.1, Baso # (Auto) 0.0 I & O for Labs for Last 24 Hours: Intake & Output 04/11/24 04/12/24 04/13/24 04/14/24 23:59 23:59 23:59 23:59 Weight 174 lb Head: Present atraumatic and normocephalic ENT: Present mucous membranes moist Neck: Present full ROM Respiratory: Present CTA bilaterally and normal respiratory effort Cardiac: Present Reg Rate and Rhythm GI: Present soft; Absent distention or tenderness Comments:: Uterine fundus firm and below umbilicus Rectal (female): Present deferred (female): Present deferred Extremities: Present full ROM; Absent edema or calf tenderness Neuro: Present alert, awake and moves all extremities Assessment and Plan *Assessment and plan (1) Status post normal vaginal delivery: Status: Acute Category: Medical (2) 39 weeks gestation of : Status: Acute Category: Medical Code(s): Z3A.39 - 39 weeks gestation of (3) Encounter for elective induction of labor: Status: Acute Category: Medical Code(s): Z34.90 - Encounter for supervision of normal , unspecified, unspecified trimester (4) Acute blood loss anemia: Status: Acute Category: Medical Code(s): D62 - Acute posthemorrhagic anemia Plan Continue routine care AM Hgb 10.8 (12.2 on admission) Plan d/c home tomorrow
[2024-04-14 12:14] LABS: Rapid Plasma Reagin Ab Titer Non Reactive titer (NonRea<1:1)
[2024-04-14 20:09] VITALS: BP 135/75; PULSE 68; RESP 18; TEMP 36.9; O2SAT 98
[2024-04-14] MEDS: WITCH HAZEL 40 PADS/BOX 1 EACH TP (20:13)
[2024-04-14] MEDS: ALUMINUM/MAGNESIUM/SIMETHICONE 30ML UDC 30 ML PO (20:30)
[2024-04-15] MEDS: ACETAMINOPHEN 500MG TAB 1000 MG PO ×2 (04:34→11:33)
[2024-04-15] MEDS: IBUPROFEN 400 MG TABLET 800 MG PO (04:34)
[2024-04-15 04:35] VITALS: BP 127/78; PULSE 54; RESP 18; TEMP 36.7; O2SAT 95
--- NOTE | 2024-04-15 09:47 | P.DS_ITS ---
General Admission date:: 04/13/24 Discharge date: 04/15/24 HPI HPI HPI: Chitra is a 29 yo at 39w2d who presents to [facility] L&D for elective induction of labor. She has had good care. Baby is active. She has been having irregular contractions and pelvic pressure. GBS negative. History of Present Criteria for establishing EDC:: LMP confirmed by 1st trimester US care: good care Ultrasounds: normal mid trimester US Obstetrical complications: none Medical complications: none Labs Blood type: A (+) positive Rubella: immune RPR/VDRL: nonreactive GBS status: negative HBsAG: negative Hospital Course Hospital Course Hospital Course: Chitra Jewell is a 29-year-old day 2 from a normal spontaneous vaginal delivery. She delivered a live viable male infant which weighed 7 pounds and 15 ounces. Delivery occurred on 04/13/2024 at 1535. Apgars were 8 and 9. She did have a hemoglobin drop from 12.2 to 10.8. She has rubella immune and GBS negative. She is both . Reports her pain is well-controlled, her lochia scant, and she is tolerating p.o. without nausea or vomiting. She is voiding spontaneously. All questions and concerns were addressed and she desires discharge home today. Routine discharge instructions reviewed with patient in detail and she voiced understanding. She will follow-up in the office in 2 weeks. Exam Data for Last 24 hours Vital signs and Labs for Last 24 Hours: Temp Pulse Resp BP Pulse Ox O2 Del Method 98.1 F 54 L 18 127/78 95 Room Air 04/15/24 04:35 04/15/24 04:35 04/15/24 04:35 04/15/24 04:35 04/15/24 04:35 04/15/24 04:35 Laboratory Results - last 24 hr 04/13/24 05:38: RPR Titer Non reactive I & O for Last 24 hours: Intake & Output 04/12/24 04/13/24 04/14/24 04/15/24 23:59 23:59 23:59 23:59 Weight 174 lb Microbiology Reports for the Last 24 Hours: Microbiology 04/13/24 05:43 Urine,Clean Catch Urine Culture - Final No growth. Constitutional Constitutional: no acute distress *Routine HEENT Exam Head: Present normocephalic Eye: Present EOMI and PERRL ENT: Present mucous membranes moist *Routine Neck Exam Neck: Present supple; Absent lymphadenopathy *Routine Respiratory Exam Respiratory: Present CTA bilaterally *Routine Cardiovascular Exam Cardiovascular: Present RRR *Routine Abdominal Exam Abdominal: Present soft and normoactive bowel sounds; Absent tenderness *Routine Extremities Exam Extremities: Absent cyanosis, clubbing or edema *Routine Skin Exam Skin: Present warm; Absent rash *Routine Neurological Exam Neurological: Present alert and oriented X3 Results Data Completed and Pending Labs on day of discharge: Labs from last 24 hours 04/13/24 05:38 RPR Titer Non reactive DS: Diagnosis Discharge Diagnosis (1) Status post normal vaginal delivery: Status: Acute (2) 39 weeks gestation of : Status: Acute Code(s): Z3A.39 - 39 weeks gestation of (3) Encounter for elective induction of labor: Status: Acute Code(s): Z34.90 - Encounter for supervision of normal , unspecified, unspecified trimester (4) Acute blood loss anemia: Status: Acute Code(s): D62 - Acute posthemorrhagic anemia Meds Home Medications and Allergies Home Medications ?Medication ?Instructions ?Recorded ?Confirmed ?Type vits no.126-ferrous fum 1 tab PO DAILY 09/09/23 04/13/24 History 28 mg iron-folic acid 800 mcg tablet (Classic ) acetaminophen 500 mg tablet 500 mg PO Q6H PRN fever or pain 04/15/24 Rx #30 tabs ferrous sulfate 325 mg (65 mg 325 mg PO DAILY #30 tabs 04/15/24 Rx iron) tablet,delayed release ibuprofen 800 mg tablet 800 mg PO Q8H PRN pain #60 tabs 04/15/24 Rx sennosides 8.6 mg tablet (Senna 8.6 mg PO BIDP PRN Constipation 04/15/24 Rx Lax) #60 tabs New Prescriptions to Start Prescriptions: acetaminophen Maddie Flannery ferrous sulfate Maddie Flannery ibuprofen Maddie Flannery sennosides [Senna Lax] Maddie Flannery Allergies Allergy/AdvReac Type Severity Reaction Status Date / Time amoxicillin Allergy Verified 04/12/24 16:06 Discharge Plan Disposition Patient Disposition: Home, Self-Care Discharge Order Discharge Orders: Discharge Order (Routine); Ordered 04/15/24 Ordered By: Maddie Flannery Follow up Plan Follow up with: Claudia Molina DO [Primary Care Provider] - 2 weeks Prescriptions/Medication Reconciliation: New acetaminophen 500 mg tablet 500 mg PO Q6H PRN (Reason: fever or pain) Qty: 30 3RF sennosides [Senna Lax] 8.6 mg Tablet 8.6 mg PO BIDP PRN (Reason: Constipation) Qty: 60 2RF ibuprofen 800 mg tablet 800 mg PO Q8H PRN (Reason: pain) Qty: 60 2RF ferrous sulfate 325 mg (65 mg iron) tablet,delayed release (DR/EC) 325 mg PO DAILY Qty: 30 3RF Continued Classic 28 mg iron- 800 mcg tablet 1 tab PO DAILY Problem Reconciliation Problems Reviewed?: Yes Patient Discharge Instructions ACTIVITY: Continue current activity DIET: regular diet Additional Instructions: Congratulations on the delivery of your sweet baby boy. It is my privilege to be a part of your [employer] team. Discharge: -Take 800 mg Ibuprofen every 8 hours as needed for pain. You can also take 500- 1000 mg of Tylenol in between doses, every 6-8 hours. -Colace can be taken 1-2 times per day as you need to soften your stool. Make sure to drink at least 8 cups of water per day. -Iron supplements can make you constipated. You can take iron tablets every other day if constipation is too bad. -Nothing in the vagina for 6 weeks - no intercourse, douching, tampons. No tub baths or swimming pools. -Do not lift greater than 20pounds for 2 weeks, this is the equivalent of 2 gallons of milk. -Reasons to return to L&D or call On-Call doctor - fever (greater than 100.4) - heavy vaginal bleeding (soaking through 1 pad in less than 2 hours or passing clots that are egg sized) - vaginal discharge (malodorous and/or purulent) - severe headaches, leg tenderness/edema, or any other symptoms that warrant immediate medical attention. depression/blues - Normal to feel anxious/overwhelmed for first 2 weeks - Talk to your doctor if: anxiety lasts over 2 weeks, trouble bonding with baby, withdrawing from other family members, thoughts of harming yourself or others Maddie Flannery DO [facility] [phone] *Nothing in the Vagina for 6 weeks* *No strenuous activity* *No heavy lifting* *No tub baths until okay's by MD* Patient Instructions: Depression, Hemorrhage, DI for Labor and Delivery, Vaginal , DI for Pre-eclampsia, [facility] Post Discharge Instructions Print Language: Swedish Providers Primary Care Provider: Claudia Molina Admit Provider: Maddie Flannery Attending Provider: Maddie Flannery
== END 2024-04-15 13:15 | disposition home or self-care (01) | DRG 807 ==
PROVIDERS: Admitting Provider Obstetrics & Gynecology; PCP Obstetrics & Gynecology; Visit Provider Obstetrics & Gynecology
DX: O69.81X0 Labor and delivery complicated by cord around neck, without compression, not applicable or unspecified (principal); Z37.0 Single live birth; Z3A.39 39 weeks gestation of pregnancy; O99.02 Anemia complicating childbirth; D64.9 Anemia, unspecified
CPT/HCPCS: 36415; 59025; 80307; 81001; 85025; 86593; 86850; 87086; 94761; G0283; J2405; J7120

== ENCOUNTER 2024-08-30 09:42 | Emergency (ER) | payer OTHER, SELFPAY ==
[2024-08-30 10:44] VITALS: BP 130/84; PULSE 81; RESP 18; TEMP 36.8; O2SAT 99; BMI 26.1
[2024-08-30 10:55] LABS: UTC Strep Screen (Rapid) Negative (Negative)
--- NOTE | 2024-08-30 10:57 | EXP.UTC ---
Discharge Plan Disposition Patient Disposition: Home, Self-Care Condition: Good Prescriptions Prescriptions: New promethazine 12.5 mg tablet 12.5 mg PO Q6H PRN (Reason: nausea and vomiting) Qty: 15 0RF No Action Classic 28 mg iron- 800 mcg tablet 1 tab PO DAILY ibuprofen 800 mg tablet 800 mg PO Q8H PRN (Reason: pain) Qty: 60 2RF Referrals Follow up/Referrals: Laura Farrar PA [Primary Care Provider] - See instructions Activity Restrictions/Add. Instructions Additional Instructions/Restrictions: Drink plenty of fluids. Take tylenol or ibuprofen for pain or fever. Take the medications as directed. Follow up with your regular doctor. GO TO THE ER FOR ANY WORSENING SYMPTOMS Clinical Impressions Clinical Impression: Acute viral syndrome Stand Alone Forms Stand Alone Forms: Work/School Release Instructions Patient Instructions: DI for Viral Syndrome, Promethazine Print Language Print Language: Macedonian Discharge ED Provider[place] Vish Cooney [facility] General Stated complaint: sore throat, neck swollen/painful, h/a Mode of Arrival: Ambulatory Source of Information: Patient Time Seen by Provider: 08/30/24 10:56 Description of Symptoms (Recalled from Triage Doc. by RN): SORE THROAT, ORTIZ HEENT Symptoms (Recalled from RN notes): Yes Resp Symptoms (Recalled from RN notes): No Skin Symptoms (Recalled from RN notes): No MS Symptoms (Recalled from RN notes): No Functional Status (Recalled from RN notes): WNL Related Data Home Medications ?Medication ?Instructions ?Recorded ?Confirmed vits no.126-ferrous fum 1 tab PO DAILY 09/09/23 05/25/24 28 mg iron-folic acid 800 mcg tablet (Classic ) Previous Rx's ?Medication ?Instructions ?Recorded ibuprofen 800 mg tablet 800 mg PO Q8H PRN pain #60 tabs 04/15/24 promethazine 12.5 mg tablet 12.5 mg PO Q6H PRN nausea and 08/30/24 vomiting #15 tabs Allergies Allergy/AdvReac Type Severity Reaction Status Date / Time amoxicillin Allergy Verified 05/25/24 10:14 Worker's Comp Is this a Worker's Comp case?: No [facility] Disclaimer: The information contained in this section may have been updated after the patient was seen, as this information can be updated by other users. Medical History Acute blood loss anemia Status post normal vaginal delivery 39 weeks gestation of Encounter for elective induction of labor Dilation of renal pelvis of fetus Screening for genetic disease carrier status 10/02/23 - [facility] carrier screen negative for 4 conditions tested - CF, Fragile X, SMA, DMD Endometriosis Clinically diagnosed Dyspareunia Dysmenorrhea Menorrhagia VSD (ventricular septal defect) Pt was born with VSD but has been told it has resolved on its own. Surgical History History of placement of ear tubes Family History Other Anemia Hyperlipidemia Hypertension Social History Smoking Status: Never smoker alcohol intake: never substance use type: denies use current occupational status: employed Travel in the last 8 weeks: None household members: significant other housing: house lives independently: No marital status: single service: No skilled nursing: No current occupational exposures/hazards: No Have you lived/traveled outside [place] in past 30 days?: No Contact w/someone who lives/traveled outside [place] past 30 days?: No Exposure to someone with infectious disease in past 14 days?: No Do you have a fever (greater than 100.4 F or 38 C)?: No Have you tested positive for COVID-19: No Exposed to someone with COVID-19 in past 14 days?: No Do you have a sore throat?: Yes Do you have a cough?: No Do you have any weakness?: No Do you have any diarrhea?: No Are you experiencing any unusual bleeding?: No Do you have any muscle aches/pain?: No Do you have any abdominal pain?: No Are you experiencing loss of taste or smell?: No ROS Obtained: Yes All systems reviewed & no additional complaints except as documented Constitutional Constitutional: Reports poor appetite Eyes Eyes: Reports system reviewed and no additional complaints, except as documented ENT Ears, Nose, Mouth, and Throat: Reports as per HPI Cardiovascular Cardiovascular: Reports system reviewed and no additional complaints, except as documented and Denies chest pain Respiratory Respiratory: Denies shortness of breath, Denies chest congestion, Reports cough, Denies stridor and Denies wheezing Gastrointestinal Gastrointestingal: Reports system reviewed and no additional complaints, except as documented; Denies abdominal pain, diarrhea or vomiting Musculoskeletal Musculoskeletal: Reports system reviewed and no additional complaints, except as documented and Denies arthralgias Integumentary/Breasts Skin/Breast: Reports system reviewed and no additional complaints, except as documented and Denies rash Neurologic Neurologic: Denies paresthesias Allergic/Immunologic Allergic/Immunologic: Denies wheezing Physical Exam General General appearance: alert and in no apparent distress Eye Eye exam: Present normal appearance, PERRL and EOMI ENT ENT exam: Present mucous membranes moist and normal external ear exam Expanded ENT Exam External ear exam: Present normal external inspection TM/Canal exam: Bilateral TM: erythema and bulging Nose exam: Absent sinus tenderness Nasal speculum exam: Bilateral: normal Mouth exam: Present normal external inspection; Absent drooling Teeth exam: Present normal inspection Throat exam: Present tonsillar erythema and tonsillomegaly Neck Neck exam: Present normal inspection, full ROM and trachea midline; Absent tenderness, lymphadenopathy or thyromegaly Chest Chest inspection: Present normal inspection and symmetric chest wall rise; Absent tenderness or rash Respiratory Respiratory exam: Present normal lung sounds bilaterally; Absent respiratory distress, wheezes, stridor or accessory muscle use Cardiovascular Cardiovascular exam: Present regular rate, normal rhythm and normal heart sounds Abdominal Exam Abdominal exam: Present soft; Absent distention, tenderness, guarding, rebound or rigidity Extremities Exam Extremities exam: Present normal inspection, full ROM and normal capillary refill; Absent tenderness or calf tenderness Back Exam Back exam: Present normal inspection and full ROM; Absent tenderness Neurological Exam Neurological exam: Present alert and oriented X3 Psychiatric Psychiatric exam: Present normal affect and normal mood Skin Skin exam: Present warm, dry, intact and normal color Lymphatic Lymphatic Findings: no adenopathy Medical Decision Making Medical Records Medical records reviewed: No I reviewed the patient's medical records. Screening: Per USPSTF and CDC recommendations, given the prevalence of disease in our region, it is our hospital?s policy to screen for HIV and viral Hepatitis for all patients aged 18 and over and those with ongoing risk factors. Bret Inquiry Pt receiving controlled substance: No Vital Signs: 08/30/24 10:44 Temperature 98.3 F Temperature Source Oral Pulse Rate [Left Radial] 81 Respiratory Rate 18 Blood Pressure [Left Arm] 130/84 Blood Pressure Mean [Left Arm] 99 02 Sat by Pulse Oximetry 99 Lab Data Lab Results 08/30/24 10:47: Strep Scn Rapid Clinic Negative Orders (Tests/Meds): ORDERS Category Date Time Status Strep Screen Confirmation Stat Micro 08/30/24 10:47 Received
[2024-08-30 11:25] VITALS: BP 130/84; PULSE 81; RESP 18; TEMP 36.8
[2024-08-30 11:27] LABS: Coronavirus 19, PCR Not Detected (NotDetected); Human Rhinovirus Not Detected (NotDetected); Influenza A, PCR Not Detected (NotDetected); Influenza B, PCR Not Detected (NotDetected); Respiratory Syncytial Virus Not Detected (NotDetected)
== END 2024-08-30 11:26 | disposition home or self-care (01) ==
PROVIDERS: Emergency Provider Nurse Practitioner Family; PCP Student in an Organized Health Care Education/Training Program
DX: B34.9 Viral infection, unspecified (principal)
CPT/HCPCS: 87631; 87880; 99213; G0381

== ENCOUNTER 2025-04-16 08:59 | Outpatient (CLI) | payer OTHER, SELFPAY ==
[2025-04-16 19:41] LABS: Coronavirus 19, PCR Not Detected (NotDetected); Influenza A, PCR Not Detected (NotDetected); Influenza B, PCR Not Detected (NotDetected)
== END 2025-04-16 23:59 | disposition home or self-care (01) ==
LOC: LAB.DROPOF 04-17 09:31
PROVIDERS: PCP Student in an Organized Health Care Education/Training Program; Visit Provider Student in an Organized Health Care Education/Training Program
DX: J06.9 Acute upper respiratory infection, unspecified (principal)
CPT/HCPCS: 87631

== ENCOUNTER 2025-04-28 13:05 | Outpatient (CLI) | payer OTHER, SELFPAY ==
--- NOTE | 2025-04-28 13:07 | XR_ITS ---
FINAL REPORT CLINICAL HISTORY: cough, SOB FINDINGS: CHEST 2 VIEWS PA AND LATERAL The heart is normal in size. Pectus deformity is identified. On the lateral view, the distance between the posterior sternum and the anterior thoracic vertebrae measure about 6 cm. The lungs are clear. There is no pneumothorax. IMPRESSION: No acute process. Reviewed, Interpreted and Dictated by Yomi Rod MD Transcribed by Lisa Balderas Authenticated and . [facility]
== END 2025-04-28 23:59 | disposition home or self-care (01) ==
LOC: RAD 13:06
PROVIDERS: Visit Provider Student in an Organized Health Care Education/Training Program
DX: R05.9 Cough, unspecified (principal); R06.02 Shortness of breath
CPT/HCPCS: 71046

== ENCOUNTER 2025-06-09 08:16 | Outpatient (CLI) | payer OTHER, SELFPAY ==
[2025-06-09 18:52] LABS: Hematocrit 38.4 % (37.0-47.0); Hemoglobin 12.4 g/dL (12.2-16.2); Immature Granulocytes % 0.3 %; Mean Corpuscular HGB Conc 32.3 g/dL (31.8-35.4); Mean Corpuscular Hemoglobin 27.3 pg (27.0-31.2); Mean Corpuscular Volume 84.4 fl (81-99); Nucleated Red Blood Cells % 0 %; Platelet Count 355 K/mm3 (142-424); Red Blood Count 4.55 M/mm3 (4.20-5.40); Red Cell Distribution Width-SD 40.8 fL; White Blood Count 6.0 K/mm3 (4.8-10.8)
[2025-06-09 18:57] LABS: Chloride 102 mmol/L (98-107); Potassium 3.8 mmoL/L (3.5-5.1); Sodium 139 mmol/L (136-145)
[2025-06-09 18:59] LABS: Blood Urea Nitrogen 16 mg/dl (7-17); Creatinine,Serum 0.70 mg/dl (0.52-1.04); Estimated Glomerular Filt Rate 99 ml/min (>60); GFR (African American) 120 ML/MIN (>60)
[2025-06-09 19:00] LABS: Alanine Aminotransferase 18 U/L (12-78); Alkaline Phosphatase 68 U/L (38-126); Aspartate Amino Transferase 27 U/L (14-36); Bilirubin,Total 0.3 mg/dl (0.2-1.3); Calcium 9.0 mg/dl (8.4-10.2); Glucose 110 mg/dl (74-100); Total Protein,Serum 7.4 g/dl (6.3-8.2)
[2025-06-09 19:17] LABS: T4 (Thyroxine) 7.5 ug/dl (5.53-11.0)
[2025-06-09 19:30] LABS: Thyroid Stimulating Hormone 1.00 uIU/mL (0.465-4.68)
[2025-06-09 19:49] LABS: Hepatitis C Ab Qual. W/ RFX NEGATIVE (Negative)
[2025-06-09 20:24] LABS: Albumin Level 4.4 g/dl (3.5-5.0); Albumin/Globulin Ratio 1.5 (1.1-1.8); Anion Gap 11.8 mEq/L (5-15); Carbon Dioxide 29 mmol/L (22.0-30.0); Globulin 3.0 g/dL (1.3-3.2)
[2025-06-11 09:10] LABS: Hepatitis B Surface Antigen Negative (Negative)
== END 2025-06-09 23:59 | disposition home or self-care (01) ==
LOC: LAB.DROPOF 06-10 08:16
PROVIDERS: Visit Provider Nurse Practitioner Family
DX: D64.9 Anemia, unspecified (principal); F41.9 Anxiety disorder, unspecified; Z11.59 Encounter for screening for other viral diseases
CPT/HCPCS: 80053; 84436; 84443; 85025; 86803; 87340; 87389